=== PATIENT | female | born 1995 | race Caucasian/White ===

== ENCOUNTER 2019-08-20 23:55 | Inpatient (IN) | payer BC ==
[~2019-08-20 23:55] MED LIST: Bupivacaine 0.25% HCL 30 ML VIAL ONE
[2019-08-21] MEDS ORDERED: NS / Oxytocin 40 units/1000ml 1,000 ML IV PRN (00:20)
[2019-08-21] MEDS ORDERED: Lidocaine 1% (PF) 30 ML VIAL SC PRN (00:20)
[2019-08-21] MEDS ORDERED: Ondansetron PF 4 MG/2 ML Vial IVP PRN ×3 (00:20→04:17)
[2019-08-21] MEDS ORDERED: Ibuprofen 800 MG TAB PO PRN (00:20)
[2019-08-21] MEDS ORDERED: Butorphanol Tartrate 1 MG/ML VIAL SLOW IVP PRN (00:20)
[2019-08-21] MEDS ORDERED: hydrALAZINE 20 MG/ML VIAL SLOW IVP PRN ×2 (00:20→04:17)
[2019-08-21] MEDS ORDERED: HYDROcodone/Acetaminophen 5/325 mg Tablet PO PRN (00:20)
[2019-08-21 00:41] LABS: Hemoglobin 11.9 g/dL (12.0-16.0); Mean Corpuscular HGB CONC 33.7 g/dL (32.0-36.0); Mean Corpuscular Volume 91.9 fL (78.0-98.0); Mean Platelet Volume 10.4 fL (7.4-10.4); Platelet Count 224 thou/uL (130-400); RBC Distribution Width 11.8 % (11.5-14.5); Red Blood Cell (RBC) Count 3.84 mill/uL (4.20-5.40); White Blood Cell (WBC) Count 17.8 thou/uL (4.8-10.8)
[2019-08-21] MEDS ORDERED: Fentanyl 4 mcg/Bup 0.1% Cadd 0 ML ONE (01:11)
[2019-08-21] MEDS ORDERED: Fentanyl 4 mcg/Bup 0.1% Cadd 100 ML ONE (01:11)
[2019-08-21 01:24] LABS: HBSAg Index 0.31 S/CO (0-0.99); Hep B Surf Ag Non-Reactive S/CO (NonReactive)
[2019-08-21] MEDS ORDERED: Fentanyl 100 MCG/2 ML VIAL ONE (01:33)
[2019-08-21] MEDS ORDERED: diphenhydrAMINE 50 MG/ML VIAL IVP PRN (01:48)
[2019-08-21] MEDS ORDERED: Acetaminophen 325 MG TAB PO PRN (01:48)
[2019-08-21] MEDS ORDERED: Naloxone HCl 0.4 mg/ml Vial IVP PRN ×2 (01:48)
[2019-08-21] MEDS ORDERED: EPHEDRINE 25 MG/5 ML SYRINGE SLOW IVP PRN (01:48)
[2019-08-21] MEDS ORDERED: Promethazine HCl 25 MG/ML VIAL IM PRN (01:48)
[2019-08-21] MEDS ORDERED: Lactated Ringer's 500 ML IV PRN (01:48)
[2019-08-21] MEDS ORDERED: Communication Order-Pharmacy FS SCH (02:00)
[2019-08-21] MEDS ORDERED: Fentanyl 4 mcg/Bupivacaine 0.1% Cassette 100 ML EPIDURAL SCH (02:00)
[2019-08-21 02:18] VITALS: BMI 22.7
[2019-08-21] MEDS ORDERED: Lactated Ringer's 1,000 ML IV SCH ×2 (02:30→03:30)
[2019-08-21] MEDS ORDERED: NS w/ Oxytocin 10 units 500 ML ONE (03:24)
[2019-08-21 03:57] LABS: Syphilis Antibody Nonreactive (Nonreactive); Syphilis Antibody Index 0.07 S/CO (<1.00 Non-Reactive)
[2019-08-21] MEDS ORDERED: Benzocaine-Menthol 82.5 ML CAN TOP PRN (04:17)
[2019-08-21] MEDS ORDERED: Lanolin Ointment 7 GM TUBE TOP PRN (04:17)
[2019-08-21] MEDS ORDERED: Bisacodyl 10 MG SUPP PR PRN (04:17)
[2019-08-21] MEDS ORDERED: Acetaminophen/Codeine 30-300mg Tablet PO PRN ×2 (04:17)
[2019-08-21] MEDS ORDERED: diphenhydrAMINE 25 MG CAP PO PRN (04:17)
[2019-08-21] MEDS ORDERED: Milk Of Magnesia 30 ML UDCUP PO PRN (04:17)
[2019-08-21] MEDS ORDERED: Preparation H Ointment 28 GM TUBE PR PRN (04:17)
[2019-08-21] MEDS ORDERED: Misoprostol 200 MCG TAB VAG PRN (04:17)
[2019-08-21] MEDS ORDERED: Zolpidem Tartrate 5 MG TAB PO PRN (04:17)
[2019-08-21] MEDS ORDERED: NS / Oxytocin 40 units/1000ml 1,000 ML IV SCH (04:30)
[2019-08-21] MEDS: Ferrous Sulfate 325 MG TAB PO SCH ×2 (08:23→15:02)
[2019-08-21] MEDS: Ibuprofen 800 MG TAB PO SCH ×3 (08:23→21:15)
[2019-08-21] MEDS: NS w/ Oxytocin 10 units 500 ML IV SCH (08:23)
[2019-08-21] MEDS: Docusate Calcium (SURFAK) 240 MG CAP PO SCH ×2 (08:45→21:15)
[2019-08-21] MEDS: Prenatal Vitamin 1 TAB PO SCH (08:45)
[2019-08-21] MEDS ORDERED: Adacel (T-DAP) 0.5 ML SYRINGE IM ONE (09:00)
[2019-08-22] MEDS: NS w/ Oxytocin 10 units 500 ML IV SCH (05:49)
[2019-08-22] MEDS: Ibuprofen 800 MG TAB PO SCH ×2 (05:50→13:05)
[2019-08-22 06:40] LABS: Hemoglobin 9.9 g/dL (12.0-16.0); Mean Corpuscular HGB CONC 32.7 g/dL (32.0-36.0); Mean Corpuscular Hemoglobin 30.8 pg (27.0-31.0); Mean Corpuscular Volume 94.2 fL (78.0-98.0); Mean Platelet Volume 9.5 fL (7.4-10.4); Platelet Count 178 thou/uL (130-400); RBC Distribution Width 11.9 % (11.5-14.5); Red Blood Cell (RBC) Count 3.23 mill/uL (4.20-5.40); White Blood Cell (WBC) Count 11.8 thou/uL (4.8-10.8)
[2019-08-22 08:11] VITALS: BP 110/64; TEMP 98.5
[2019-08-22] MEDS: Docusate Calcium (SURFAK) 240 MG CAP PO SCH (08:44)
[2019-08-22] MEDS: Prenatal Vitamin 1 TAB PO SCH (08:44)
[2019-08-22] MEDS: Ferrous Sulfate 325 MG TAB PO SCH (08:45)
== END 2019-08-22 17:55 | disposition home or self-care (01) | DRG 807 ==
LOC: L&D/OP 23:55 → L&D 08-21 00:20 → 3SW 08-21 08:25
PROVIDERS: ADMIT Obstetrics & Gynecology; ATTEND Obstetrics & Gynecology
PROC: 10E0XZZ Delivery of Products of Conception, External Approach (ICD-10-PCS; principal; 2019-08-21)
PROC: 10907ZC Drainage of Amniotic Fluid, Therapeutic from Products of Conception, Via Natural or Artificial Opening (ICD-10-PCS; 2019-08-21)
PROC: 0W8NXZZ Division of Female Perineum, External Approach (ICD-10-PCS; 2019-08-21)
PROC: 0HQ9XZZ Repair Perineum Skin, External Approach (ICD-10-PCS; 2019-08-21)
PROC: 0UQMXZZ Repair Vulva, External Approach (ICD-10-PCS; 2019-08-21)
DX: O70.0 First degree perineal laceration during delivery (principal); Z37.0 Single live birth; O71.82 Other specified trauma to perineum and vulva; Z3A.38 38 weeks gestation of pregnancy
CPT/HCPCS: 36415; 51702; 85027; 86780; 86850; 86900; 86901; 87340; 90715; 99285; J2405; J2590; J3010; S0020